=== PATIENT | male | born 1960 | race Two or more races ===

== ENCOUNTER 2018-01-12 07:00 | Outpatient (CLI) | payer OTHER ==
[~2018-01-12 07:00] MED LIST: NABUMETONE500 MG PO; PERCOCET 5/3251 TAB PO
== END 2018-01-12 10:00 | disposition home or self-care (01) ==
LOC: LAB 07:00 → AMB-ENDOS 07:00 → LAB 10:00 → ADM 11:15 → AMB-ENDOS 01-16 08:52 → EDSTATUS 01-16 11:15
DX: K64.1 Second degree hemorrhoids (principal); L29.0 Pruritus ani; K64.4 Residual hemorrhoidal skin tags; K62.89 Other specified diseases of anus and rectum

== ENCOUNTER 2019-12-03 11:20 | Outpatient (CLI) | payer OTHER | END 2019-12-03 11:34 | disposition home or self-care (01) | LOC: NUCLEAR 11:20 | PROVIDERS: ATTEND Internal Medicine Cardiovascular Disease | DX: I87.2 Venous insufficiency (chronic) (peripheral) (principal) ==